=== PATIENT | female | born 1975 | race Caucasian/White ===

== ENCOUNTER 2025-03-08 05:15 | Observation (INO) ==
[2025-03-08 05:34] VITALS: BMI 30.9
[2025-03-08] MEDS: PEPCID TAB 40 MG PO ONE (05:52)
[2025-03-08] MEDS: BENADRYL INJ 50 MG VIAL IM ONE (05:54)
[2025-03-08] MEDS: ATARAX TAB 25 MG PO ONE (07:02)
--- NOTE | 2025-03-08 07:44 | DR.ALLERGY ---
HPI Time Seen Time Seen by Provider: 03/08/25 07:43 PCP Primary Care Physician: ROCÍO PIZANO HPI Comment HPI Comment: Patient with complaints of hives, itching, swelling. Patient states she was seen by the dentist yesterday and since then about 4 hours later she started getting itchy. Patient's hands are a little swollen. Denies fever. Patient states she also feels like something is stuck in her throat. Complaint/Symptoms Chief Complaint:: PT AMBULATORY IN ED WITH C/O WHELPS, ITCHING AND SWELLING. PT STATES SHE WENT TO THE DENTIST YESTERDAY AND STARTED ITCHING SHE WAS LEAVING THEN 4-6 HRS LATERS HAVING SWELLING, ITCHING AND WHELPS ON ARMS AND LEGS. STATES HANDS ARE HOT TO TOUCH AND HURT. Self Treatment fo Chief Complaint: BENADRYL 50MG EVERY 6 HRS. COVID-19 Coronavirus risk:travel/contact w/high risk person: No Has patient experienced Coronavirus symptoms: No Source History Provided: Patient Mode of Arrival Mode of Arrival: Ambulatory Timing Onset of Chief Complaint: 03/07/25 PMH PMH Past Medical History: Yes Past Medical History: Arthritis, Coronary Artery Disease, Dyslipidemia, GERD, Gout, Hypertension, Hypothyroidism and PUD Past Medical History Comment: RLS Past Surgical History: Yes Surgical History: Angioplasty/Stents and Hysterectomy Past Surgical History Comment: ESOPHAGUS DILATED Family History History of Family Medical Conditions: Yes Family Medical History: Diabetes Mellitus, Cancer, [place], Coronary Artery Disease, Heart Failure and Hypertension Social History Does patient currently use any type of tobacco product: No Have you used tobacco products in the last 12 months: No Type of Tobacco Use: None Does any household member use tobacco: No Alcohol Use: None Do you use any recreational Drugs:: No Lives With: Spouse Lives Where: Home Travel Risk Coronavirus risk:travel/contact w/high risk person: No Has patient experienced Coronavirus symptoms: No Infectious screening In the last 2 months have you had wt loss of >10#?: NO Have you had fever, night sweats or hemotysis?: No Have you traveled outside the country in the last 6 months?: No Isolation: Standard ROS Review of Systems Constitutional: No Symptoms Reported Eyes: No Symptoms Reported ENTM: No Symptoms Reported Respiratoy: No Symptoms Reported Cardiovascular: No Symptoms Reported Gastrointestinal/Abdominal: No Symptoms Reported Genitourinary: No Symptoms Reported Neurological: No Symptoms Reported Musculoskeletal: No Symptoms Reported Integumentary: See HPI Hematologic/Lymphatic: No Symptoms Reported Endocrine: No Symptoms Reported Psychiatric: No Symptoms Reported All Other Systems: Reviewed and Negative PE Vitals Vital Signs: Temp Pulse Resp BP Pulse Ox O2 Del Method 03/08/25 07:15 79 97 Room Air 03/08/25 07:00 77 97 Room Air 03/08/25 07:00 115/56 03/08/25 06:48 80 97 Room Air 03/08/25 05:16 98.3 F 90 20 113/66 97 Room Air Constitutional Limitations: No Limitations General Appearance: Alert and In No Apparent Distress Head Head Exam: Normal Inspection Eyes Eye exam: Normal Appearance ENT ENT Exam: Normal Exam and Mucous Membranes Moist Mouth Exam: Normal Inspection; negative Drooling, Lip Swelling or Tongue Swelling Throat Exam: Normal Inspection; negative Muffled Voice Neck Neck Exam: Normal Inspection and Trachea Midline Chest Chest Inspection: Normal Inspection Respiratory Respiratory Exam: Normal Lung Sounds Bilat Cardiovascular Cardiovascular Exam: Regular Rate and Normal Rhythm Abdominal Exam Abdominal Exam: Normal Inspection, Normal Bowel Sounds and Soft Extremities Extremities Exam: Normal Inspection Back Back Exam: Normal Inspection Neurologic Neurological Exam: Alert and Oriented X3 Psychiatric Psychiatric Exam: Normal Affect and Normal Mood Skin Skin Exam: Warm, Dry, Intact, Normal Color and Rash (Hives on upper and lower extremities. Hives and swelling on her chin.) COURSE Treatment Treatment: Patient had very mild improvement with steroids and Benadryl in ER. Consultation Consultation Comments: Discussed case with Dr. Gibson and she is agreeable to admission. Opioid Opioid Risk Tool Age (Robert box if 16-45): No History of Preadolescent Sexual Abuse: No Total: 0 Total Score Risk Category: Low Risk Copyright: Dk [id number] predicting aberrant behaviors Discharge Plan Diagnosis Discharge Problem: Rash due to allergy Discharge Plan Patient Disposition: ADMITTED INPATIENT Condition: Stable Prescriptions: No Action pramipexole 1.5 mg tablet 3 mg PO QHS celecoxib 200 mg capsule 200 mg PO QDAY atorvastatin [Lipitor] 40 mg Tablet 40 mg PO QHS potassium chloride 10 mEq Capsule, Extended Release 10 meq PO QDAY atenolol-chlorthalidone 50-25 mg tablet 1 tab PO QDAY clopidogrel [Plavix] 75 mg Tablet 75 mg PO QDAY allopurinol 100 mg tablet 200 mg PO QDAY levothyroxine 100 mcg tablet 100 mcg PO QDAY aspirin 81 mg Tablet 81 mg PO QDAY atenolol 50 mg tablet 50 mg PO QDAY methotrexate sodium (PF) 25 mg/mL solution 25 mg IM QWEEK Patient Comments: [NO ORIGINAL SIG] famotidine [Pepcid] 40 mg tablet 40 mg PO BID PRN Health Concerns: Post Hospitalization: new medications and changes needed to prevent readmission or further decline. Pt educated and given instructions on all concerns. Plan of Treatment: Continue with present treatment and follow up plan. Pt is to keep follow up appointment as instructed and take medications as ordered. Orders to Discharge Patient Discharge Orders: Transfer (Routine); Ordered 03/08/25 Ordered By: Lowell Wells Follow ups/Referrals Follow ups/Referrals: ROCÍO PIZANO [Primary Care Provider, Unknown] - 3 days Instructions Stand Alone Forms: Find Help Web Site, Post Hospital Follow Up Care Print Language: SOUTH AFRICAN
[2025-03-08 08:17] LABS: MEAN PLATELET VOLUME 8.7 fL (7.4-11.0); RED CELL DISTRIBUTION WIDTH 14.2 % (11.6-16.5)
[2025-03-08 08:24] LABS: COR NA(FOR HYPERGLY) 134 mmol/L (136-145); CREATININE 0.74 mg/dL (0.55-1.02); eGFR NON BLACK RACES > 60 (>60)
[2025-03-08] MEDS ORDERED: MORPHINE SULFATE INJ 2 MG INJ IVP PRN (08:44)
[2025-03-08] MEDS ORDERED: PEPCID TAB 40 MG PO PRN (08:44)
[2025-03-08] MEDS ORDERED: ULTRAM PO PRN (08:44)
[2025-03-08] MEDS ORDERED: ZOFRAN TAB 4 MG PO PRN (08:44)
[2025-03-08] MEDS ORDERED: TYLENOL 325 MG TAB PO PRN (08:44)
[2025-03-08] MEDS ORDERED: NORCO 5/325 MG TAB PO PRN (08:44)
[2025-03-08] MEDS ORDERED: CONSULT PHARMACY - POTASSIUM & MAGNESIUM XX SCH (08:44)
[2025-03-08] MEDS: PLAVIX PO SCH (09:36)
[2025-03-08] MEDS: ZYLOPRIM PO SCH (09:37)
[2025-03-08] MEDS: ASPIRIN EC 81 MG PO SCH (09:37)
[2025-03-08] MEDS: K-DUR TAB 20 MEQ PO SCH (09:37)
[2025-03-08] MEDS: CHLORTHALIDONE PO SCH (09:37)
[2025-03-08] MEDS: TENORMIN PO SCH (09:37)
--- NOTE | 2025-03-08 10:14 | DR.H&P ---
H&P History & Physical for Day of: H&P Date: 03/08/25 Chief Complaint Chief Complaint: itching, hives, swelling History of Present Illness History of Present Illness: Patient is a 49y/o female with a PMH of CAD s/p recent PCI, HTN, HLD, RA, hypothyroidism and GERD presented with itching, hives on her upper legs/groin area, b/l wrist and hand swelling and chin swelling. She had a dental appointment for implant yesterday and noticed her wrist was itching when she left the office. When she was home 4 hrs later, she started having hives in her hands, forearm and upper leg area. She also noticed both her hands were swollen. She took benedryl every 6 hrs. She did notify the dentist office. She was the first patient there and the chair had been wiped prior to her coming in. Patient was wearing long sleeve shirt and shorts. It seems like patient's hives are limited to the area that was in contact with the dental chair. Patient received IV solumedrol, famotidine and Vistaril in the ER. Her hives appear to be better. She still has b/l hand swelling and chin swelling. She denies dyspnea. She does report she feels something stuck in her throat. She denies any new lotion or detergent. She was started on new medicines 3 weeks ago after she had PCI but did not have any reaction. Denies any allergies. Labs/imaging reviewed: -WBC 8.2 Hgb 13.8 Plt 258 K 3.3 Plan: admit to med surg. Continue IV solumedrol. Vistaril prn and famotidine. Monitor sx and rash. Resume home medications. Replace electrolytes as per protocol. Ambulate as tolerated. Monitor Am labs/imaging. Past Medical History Past Medical History: Arthritis, Coronary Artery Disease, Dyslipidemia, GERD, Gout, Hypertension, Hypothyroidism and PUD Past Surgical History Surgical History: Angioplasty/Stents and Hysterectomy Family History Family Medical History: Coronary Artery Disease and Heart Failure Social History Does patient currently use any type of tobacco product: No Have you used tobacco products in the last 12 months: No Type of Tobacco Use: None Does any household member use tobacco: No Alcohol Use: None Drug Use: None Medications Home Medications: Home Medications Medication Instructions Recorded Confirmed Type pramipexole 1.5 mg tablet 3 mg PO QHS 01/27/25 5 History allopurinol 100 mg tablet 200 mg PO QDAY 03/08/2502/09 History aspirin 81 mg tablet 81 mg PO QDAY 03/08/2503/08 History atenolol 50 mg tablet 50 mg PO QDAY 03/08/2503/08 History atenolol 50 mg-chlorthalidone 25 1 tab PO QDAY 5 03/08/25 History mg tablet atorvastatin 40 mg tablet (Lipitor) 40 mg PO QHS 03/0803/08/25 History celecoxib 200 mg capsule 200 mg PO QDAY 03/08/2502/09 History clopidogrel 75 mg tablet (Plavix) 75 mg PO QDAY 03/08/25 History famotidine 40 mg tablet (Pepcid) 40 mg PO BID PRN 02/0903/08/25 History levothyroxine 100 mcg tablet 100 mcg PO QDAY 03/08/25 03/08/25 History methotrexate sodium (PF) 25 mg/mL 25 mg IM QWEEK 03/0803/08/25 History injection solution potassium chloride 10 mEq 10 meq PO QDAY 03/08/2502/09 History capsule,extended release Allergies Allergies Allergy/AdvReac Type Severity Reaction Status Date / Time No Known Allergies Allergy Verified 03/08/25 05:25 Labs 03/08/25 08:05 03/08/25 08:05 Labs: Laboratory WBC 8.2 X10^3/uL (3.6-10.0) 03/08/25 08:05 RBC 4.68 X10^6/uL (3.5-5.4) 03/08/25 08:05 Hgb 13.8 g/dL (12.0-16.0) 03/08/25 08:05 Hct 39.1 % (36.0-47.0) 03/08/25 08:05 MCV 83.4 fL (80.0-100.0) 03/08/25 08:05 MCH 29.4 pg (27.0-34.0) 03/08/25 08:05 MCHC 35.2 g/dL (33.0-35.0) H 03/08/25 08:05 RDW 14.2 % (11.6-16.5) 03/08/25 08:05 Plt Count 258 X10^3/uL (150.0-450.0) 03/08/25 08:05 MPV 8.7 fL (7.4-11.0) 03/08/25 08:05 Neut % (Auto) 88.4 % (42.0-75.0) H 03/08/25 08:05 Lymph % (Auto) 6.3 % (21.0-51.0) L 03/08/25 08:05 [place] % (Auto) 2.3 % (0.0-13.0) 03/08/25 08:05 Eos % (Auto) 1.2 % (0.9-2.9) 03/08/25 08:05 Baso % (Auto) 1.8 % (0.2-1.0) H 03/08/25 08:05 Neut # (Auto) 7.2 x10^3/uL (2.2-4.8) H 03/08/25 08:05 Lymph # (Auto) 0.5 X10^3/uL (1.3-2.9) L 03/08/25 08:05 [place] # (Auto) 0.2 x10^3/uL (0.3-0.8) L 03/08/25 08:05 Eos # (Auto) 0.1 x10^3/uL (0.0-0.2) 03/08/25 08:05 Baso # (Auto) 0.2 X10^3/uL (0.0-0.1) H 03/08/25 08:05 Absolute Nucleated RBC 0.7 /100WBC 03/08/25 08:05 Sodium 134 mmol/L (136-145) L 03/08/25 08:05 Corrected Sodium 134 mmol/L (136-145) L 03/08/25 08:05 Potassium 3.3 mmol/L (3.5-5.1) L 03/08/25 08:05 Chloride 98 mmol/L (98-107) 03/08/25 08:05 Carbon Dioxide 29.7 mmol/L (21-32) 03/08/25 08:05 BUN 17 mg/dL (7-18) 03/08/25 08:05 Creatinine 0.74 mg/dL (0.55-1.02) 03/08/25 08:05 Est GFR (MDRD) Af Amer > 60 (>60) 03/08/25 08:05 Est GFR (MDRD) Non-Af > 60 (>60) 03/08/25 08:05 Glucose 120 mg/dL (65-99) H 03/08/25 08:05 Calcium 9.4 mg/dL (8.5-10.1) 03/08/25 08:05 Corrected Calcium TNP 03/08/25 08:05 Total Bilirubin 1.80 mg/dL (0.2-1.0) H 03/08/25 08:05 AST 15 Units/L (15-37) 03/08/25 08:05 ALT 24 Units/L (12-78) 03/08/25 08:05 Alkaline Phosphatase 101 Units/L (46-116) 03/08/25 08:05 Total Protein 8.0 g/dL (6.4-8.2) 03/08/25 08:05 Albumin 4.3 g/dL (3.4-5.0) 03/08/25 08:05 Globulin 3.7 g/dL (2.5-4.5) 03/08/25 08:05 Albumin/Globulin Ratio 1.2 Ratio (1.1-2.1) 03/08/25 08:05 Review of Systems Constitutional: No Symptoms Reported Eyes: No Symptoms Reported ENT: No Symptoms Reported Respiratory: No Symptoms Reported Cardiovascular: No Symptoms Reported Gastrointestinal: No Symptoms Reported Genitourinary: No Symptoms Reported Musculoskeletal: Arm Pain and Hand Pain Skin: Other (hives) Neurological: No Symptoms Reported Physical Exam Vital Signs: Vital Signs Temperature 98.4 F Temperature 98.3 F Pulse Rate [Left Radial] 81 Pulse Rate 79 Pulse Rate 78 Pulse Rate 80 Pulse Rate 84 Pulse Rate 80 Pulse Rate 79 Pulse Rate 77 Pulse Rate 80 Pulse Rate 90 Respiratory Rate 20 Respiratory Rate 20 Respiratory Rate 20 Blood Pressure [Left Arm] 111/65 Blood Pressure 106/60 Blood Pressure 106/60 Blood Pressure 106/60 Blood Pressure 106/60 Blood Pressure 109/66 Blood Pressure 115/56 Blood Pressure 113/66 O2 Sat by Pulse Oximetry 98 O2 Sat by Pulse Oximetry 98 O2 Sat by Pulse Oximetry 98 O2 Sat by Pulse Oximetry 99 O2 Sat by Pulse Oximetry 98 O2 Sat by Pulse Oximetry 99 O2 Sat by Pulse Oximetry 97 O2 Sat by Pulse Oximetry 97 O2 Sat by Pulse Oximetry 97 O2 Sat by Pulse Oximetry 97 O2 Sat by Pulse Oximetry 97 Oriented: Normal Throat: Normal Respiratory: Clear Throughout Cardiovascular: Normal Auscultation: Bowel Sounds: Normal Palpation: Normal Tenderness: Normal Skin: Rash and Other (hives improved ) Musculoskeletal: Wrist, Swelling and Tender Psychiatric: Normal Mood Description: Calm Affect: Normal Speech Pattern: Clear and Appropriate Assessment/Plan (1) Allergic reaction: Qualifiers: Encounter type: initial encounter Qualified Code(s): T78.40XA - Allergy, unspecified, initial encounter Status: Acute (2) Rash due to allergy: Status: Acute (3) Hypokalemia: Status: Acute (4) Hives: Status: Acute (5) CAD (coronary artery disease): Qualifiers: Coronary Disease-Associated Artery/Lesion type: unspecified vessel or lesion type [place] vs. transplanted heart: [place] heart [facility] Qualified Code(s): I25.10 - Atherosclerotic heart disease of [place] coronary artery without angina pectoris Status: Chronic (6) HTN (hypertension): Qualifiers: Hypertension type: primary hypertension Qualified Code(s): I10 - Essential (primary) hypertension Status: Chronic (7) HLD (hyperlipidemia): Qualifiers: Hyperlipidemia type: mixed hyperlipidemia Qualified Code(s): E78.2 - Mixed hyperlipidemia Status: Chronic Review H&P Reviewed: Yes Patient was examined?: Yes
[2025-03-08] MEDS: VISTARIL PO PRN (12:07)
[2025-03-08] MEDS: LIPITOR TAB 40 MG PO SCH (21:34)
[2025-03-08] MEDS: MIRAPEX TAB 1 MG PO SCH (21:34)
[2025-03-09 04:58] LABS: MEAN PLATELET VOLUME 8.9 fL (7.4-11.0); RED CELL DISTRIBUTION WIDTH 13.7 % (11.6-16.5)
[2025-03-09 05:05] LABS: COR NA(FOR HYPERGLY) 138 mmol/L (136-145); CREATININE 0.68 mg/dL (0.55-1.02); eGFR NON BLACK RACES > 60 (>60)
[2025-03-09 05:17] LABS: PLATELET MORPHOLOGY COMMENT NORMAL (NORMAL)
[2025-03-09] MEDS ORDERED: CONSULT PHARMACY - POTASSIUM & MAGNESIUM XX SCH (06:00)
[2025-03-09 07:37] VITALS: RESP 19; O2SAT 97
[2025-03-09] MEDS: MAG-OX TAB PO SCH (09:36)
[2025-03-09] MEDS: METHOTREXATE SODIUM IM SCH (09:37)
[2025-03-09] MEDS: NS + KCL 40 MEQ/L 1,000 ML IV SCH (09:50)
[2025-03-09] MEDS: K-DUR TAB 20 MEQ PO ONE (09:56)
[2025-03-09] MEDS ORDERED: K-DUR TAB 20 MEQ PO SCH (11:00)
[2025-03-09 13:20] VITALS: BP 137/65; PULSE 78; TEMP 97.9
--- NOTE | 2025-03-10 09:03 | W.DIS.FURT ---
Summary of Discharge Discharge Summary of Date Date of Exam: 03/09/25 Admission Date Date of Admission: 03/08/25 Admission Diagnosis Patient Problems (Updated 03/08/25 @ 10:13 by Lety Peter MD) Rash due to allergy (Acute) [id number], R21 Hospital Course: Patient is a 49y/o female with a PMH of CAD s/p recent PCI, HTN, HLD, RA, hypothyroidism and GERD presented with itching, hives on her upper legs/groin area, b/l wrist and hand swelling and chin swelling. She had a dental appointment for implant yesterday and noticed her wrist was itching when she left the office. When she was home 4 hrs later, she started having hives in her hands, forearm and upper leg area. She also noticed both her hands were swollen. She took benedryl every 6 hrs. She did notify the dentist office. She was the first patient there and the chair had been wiped prior to her coming in. Patient was wearing long sleeve shirt and shorts. It seems like patient's hives are limited to the area that was in contact with the dental chair. Patient received IV solumedrol, famotidine and Vistaril in the ER. Her hives appear to be better. She still has b/l hand swelling and chin swelling. She denies dyspnea. She does report she feels something stuck in her throat. She denies any new lotion or detergent. She was started on new medicines 3 weeks ago after she had PCI but did not have any reaction. Denies any allergies. She was admitted for further management. She remained on IV steroids, famotidine and Vistaril as needed. Her bilateral hand swelling and hives had improved significantly by the evening. Her labs were monitored daily and electrolytes replaced as needed. She was doing a lot better the following day. She was stable to be discharged home. She will follow-up with PCP as scheduled. Vital Signs: Vital Signs (72 hours) 03/08/25 05:16 03/08/25 06:48 03/08/25 07:00 Temperature 98.3 F Pulse Rate 90 80 Pulse Rate [Left Radial] Respiratory Rate 20 Blood Pressure 113/66 115/56 Blood Pressure [Left Arm] O2 Sat by Pulse Oximetry 97 97 Oxygen Delivery Method Room Air Room Air 03/08/25 07:00 03/08/25 07:15 03/08/25 07:30 Temperature Pulse Rate 77 79 Pulse Rate [Left Radial] Respiratory Rate Blood Pressure 109/66 Blood Pressure [Left Arm] O2 Sat by Pulse Oximetry 97 97 Oxygen Delivery Method Room Air Room Air 03/08/25 07:30 03/08/25 07:45 03/08/25 07:59 Temperature Pulse Rate 80 84 80 Pulse Rate [Left Radial] Respiratory Rate Blood Pressure Blood Pressure [Left Arm] O2 Sat by Pulse Oximetry 97 99 98 Oxygen Delivery Method 03/08/25 08:00 03/08/25 08:00 03/08/25 08:00 Temperature Pulse Rate Pulse Rate [Left Radial] Respiratory Rate Blood Pressure 106/60 106/60 106/60 Blood Pressure [Left Arm] O2 Sat by Pulse Oximetry Oxygen Delivery Method 03/08/25 08:00 03/08/25 08:02 03/08/25 08:15 Temperature Pulse Rate 78 79 Pulse Rate [Left Radial] Respiratory Rate Blood Pressure 106/60 Blood Pressure [Left Arm] O2 Sat by Pulse Oximetry 99 98 Oxygen Delivery Method 03/08/25 08:20 03/08/25 08:54 03/08/25 11:04 Temperature 98.4 F Pulse Rate Pulse Rate [Left Radial] 81 Respiratory Rate 20 20 Blood Pressure Blood Pressure [Left Arm] 111/65 O2 Sat by Pulse Oximetry 98 98 Oxygen Delivery Method Room Air Room Air Room Air 03/08/25 12:00 03/08/25 15:38 03/08/25 19:00 Temperature 98.1 F 97.9 F Pulse Rate Pulse Rate [Left Radial] 73 77 Respiratory Rate 18 19 Blood Pressure Blood Pressure [Left Arm] 109/56 116/63 O2 Sat by Pulse Oximetry 95 97 Oxygen Delivery Method Room Air Room Air Room Air 03/08/25 20:00 03/09/25 00:00 03/09/25 04:00 Temperature 97.6 F 97.7 F 97.7 F Pulse Rate Pulse Rate [Left Radial] 80 72 80 Respiratory Rate 18 16 18 Blood Pressure Blood Pressure [Left Arm] 132/67 124/73 134/77 O2 Sat by Pulse Oximetry 99 98 99 Oxygen Delivery Method Room Air Room Air Room Air 03/09/25 07:34 Temperature 98.7 F Pulse Rate Pulse Rate [Left Radial] 71 Respiratory Rate 19 Blood Pressure Blood Pressure [Left Arm] 131/64 O2 Sat by Pulse Oximetry 97 Oxygen Delivery Method Room Air Labs: Laboratory Last Values WBC 10.3 X10^3/uL (3.6-10.0) H 03/09/25 04:35 RBC 4.24 X10^6/uL (3.5-5.4) 03/09/25 04:35 Hgb 12.8 g/dL (12.0-16.0) 03/09/25 04:35 Hct 35.4 % (36.0-47.0) L 03/09/25 04:35 MCV 83.6 fL (80.0-100.0) 03/09/25 04:35 MCH 30.2 pg (27.0-34.0) 03/09/25 04:35 MCHC 36.1 g/dL (33.0-35.0) H 03/09/25 04:35 RDW 13.7 % (11.6-16.5) 03/09/25 04:35 Plt Count 267 X10^3/uL (150.0-450.0) 03/09/25 04:35 Plt Count Comment Adequate (ADEQUATE) 03/09/25 04:35 MPV 8.9 fL (7.4-11.0) 03/09/25 04:35 Neut % (Auto) 92.7 % (42.0-75.0) H 03/09/25 04:35 Lymph % (Auto) 5.9 % (21.0-51.0) L 03/09/25 04:35 [place] % (Auto) 1.0 % (0.0-13.0) 03/09/25 04:35 Eos % (Auto) 0.1 % (0.9-2.9) L 03/09/25 04:35 Baso % (Auto) 0.3 % (0.2-1.0) 03/09/25 04:35 Neut # (Auto) 9.5 x10^3/uL (2.2-4.8) H 03/09/25 04:35 Lymph # (Auto) 0.6 X10^3/uL (1.3-2.9) L 03/09/25 04:35 [place] # (Auto) 0.1 x10^3/uL (0.3-0.8) L 03/09/25 04:35 Eos # (Auto) 0.0 x10^3/uL (0.0-0.2) 03/09/25 04:35 Baso # (Auto) 0.0 X10^3/uL (0.0-0.1) 03/09/25 04:35 Absolute Nucleated RBC 0.0 /100WBC 03/09/25 04:35 Total Counted 100 03/09/25 04:35 Neutrophils % (Manual) 92 % (39-76) H 03/09/25 04:35 Lymphocytes % (Manual) 7 % (13-43) L 03/09/25 04:35 Monocytes % (Manual) 1 % (4-9) L 03/09/25 04:35 Plt Morphology Comment Normal (NORMAL) 03/09/25 04:35 RBC Morphology Normal (NORMAL) 03/09/25 04:35 Sodium 136 mmol/L (136-145) 03/09/25 04:35 Corrected Sodium 138 mmol/L (136-145) 03/09/25 04:35 Potassium 2.7 mmol/L (3.5-5.1) L* 03/09/25 04:35 Chloride 100 mmol/L (98-107) 03/09/25 04:35 Carbon Dioxide 32.9 mmol/L (21-32) H 03/09/25 04:35 BUN 19 mg/dL (7-18) H 03/09/25 04:35 Creatinine 0.68 mg/dL (0.55-1.02) 03/09/25 04:35 Est GFR (MDRD) Af Amer > 60 (>60) 03/09/25 04:35 Est GFR (MDRD) Non-Af > 60 (>60) 03/09/25 04:35 Glucose 179 mg/dL (65-99) H 03/09/25 04:35 Calcium 9.3 mg/dL (8.5-10.1) 03/09/25 04:35 Corrected Calcium TNP 03/09/25 04:35 Magnesium 1.7 mg/dL (2.0-2.9) L 03/09/25 04:35 Total Bilirubin 0.80 mg/dL (0.2-1.0) 03/09/25 04:35 AST 12 Units/L (15-37) L 03/09/25 04:35 ALT 20 Units/L (12-78) 03/09/25 04:35 Alkaline Phosphatase 94 Units/L (46-116) 03/09/25 04:35 Total Protein 7.6 g/dL (6.4-8.2) 03/09/25 04:35 Albumin 3.7 g/dL (3.4-5.0) 03/09/25 04:35 Globulin 3.9 g/dL (2.5-4.5) 03/09/25 04:35 Albumin/Globulin Ratio 0.9 Ratio (1.1-2.1) L 03/09/25 04:35 Reason For Visit: ALLERGY, HIVES, PRURITUS Discharge Diagnosis All Active Problems (Updated 03/08/25 @ 10:13 by Lety Peter MD) Allergic reaction (Acute) HLD (hyperlipidemia) (Chronic) HTN (hypertension) (Chronic) CAD (coronary artery disease) (Chronic) Hives (Acute) Rash due to allergy (Acute) Hypokalemia (Acute) Chest pain (Acute) Plan of Treatment: Continue with present treatment and follow up plan. Pt is to keep follow up appointment as instructed and take medications as ordered. Discharge Medications Discharge Medications: No Known Allergies Allergy (Verified 03/08/25 05:25) CONTINUE taking the following medications allopurinol 100 mg tablet 200 mg PO QDAY 03/08/25 [History] aspirin 81 mg tablet 81 mg PO QDAY 03/08/25 [History] atenolol 50 mg tablet 50 mg PO QDAY 03/08/25 [History] atenolol 50 mg-chlorthalidone 25 mg tablet 1 tab PO QDAY 03/08/25 [History] atorvastatin 40 mg tablet (Lipitor) 40 mg PO QHS 03/08/25 [History] celecoxib 200 mg capsule 200 mg PO QDAY 03/08/25 [History] clopidogrel 75 mg tablet (Plavix) 75 mg PO QDAY 03/08/25 [History] famotidine 40 mg tablet (Pepcid) 40 mg PO BID PRN 03/08/25 [History] levothyroxine 100 mcg tablet 100 mcg PO QDAY 03/08/25 [History] methotrexate sodium (PF) 25 mg/mL injection solution 25 mg IM QWEEK 03/08/25 [History] potassium chloride 10 mEq capsule,extended release 10 meq PO QDAY 03/08/25 [History] New Prescriptions methylprednisolone 4 mg tablets in a dose pack See Rx Instructions PO .COMPLEX #21 ea 03/09/25 [Rx] Discharge Disposition Discharge Disposition: To home Discharge Condition: Stable Discharge Plan Discharge Plan Hospital Course: Patient is a 49y/o female with a PMH of CAD s/p recent PCI, HTN, HLD, RA, hypothyroidism and GERD presented with itching, hives on her upper legs/groin area, b/l wrist and hand swelling and chin swelling. She had a dental appointment for implant yesterday and noticed her wrist was itching when she left the office. When she was home 4 hrs later, she started having hives in her hands, forearm and upper leg area. She also noticed both her hands were swollen. She took benedryl every 6 hrs. She did notify the dentist office. She was the first patient there and the chair had been wiped prior to her coming in. Patient was wearing long sleeve shirt and shorts. It seems like patient's hives are limited to the area that was in contact with the dental chair. Patient received IV solumedrol, famotidine and Vistaril in the ER. Her hives appear to be better. She still has b/l hand swelling and chin swelling. She denies dyspnea. She does report she feels something stuck in her throat. She denies any new lotion or detergent. She was started on new medicines 3 weeks ago after she had PCI but did not have any reaction. Denies any allergies. She was admitted for further management. She remained on IV steroids, famotidine and Vistaril as needed. Her bilateral hand swelling and hives had improved significantly by the evening. Her labs were monitored daily and electrolytes replaced as needed. She was do ing a lot better the following day. She was stable to be discharged home. She will follow-up with PCP as scheduled. Patient Disposition: 01 HOME, SELF-CARE Condition: Stable Health Concerns: Post Hospitalization: new medications and changes needed to prevent readmission or further decline. Pt educated and given instructions on all concerns. Care Plan Goals: Problem: Pain/Alteration in Comfort Goal: Improve/ Resolve Pain; Achieve Pain Tolerance Instructions: Take pain medications as prescribed. Contact your primary care provider if your pain is unrelieved or worsens. Follow up with primary care provider as directed. Plan of Treatment: Continue with present treatment and follow up plan. Pt is to keep follow up appointment as instructed and take medications as ordered. Prescription drug monitoring program results: PDMP reviewed and no concerns identified Prescriptions: New methylprednisolone 4 mg tablets,dose pack See Rx Instructions .ROUTE .COMPLEX Qty: 21 0RF Rx Instructions: for 6 days Continued pramipexole 1.5 mg tablet 3 mg PO QHS celecoxib 200 mg capsule 200 mg PO QDAY atorvastatin [Lipitor] 40 mg Tablet 40 mg PO QHS potassium chloride 10 mEq Capsule, Extended Release 10 meq PO QDAY atenolol-chlorthalidone 50-25 mg tablet 1 tab PO QDAY clopidogrel [Plavix] 75 mg Tablet 75 mg PO QDAY allopurinol 100 mg tablet 200 mg PO QDAY levothyroxine 100 mcg tablet 100 mcg PO QDAY aspirin 81 mg Tablet 81 mg PO QDAY atenolol 50 mg tablet 50 mg PO QDAY methotrexate sodium (PF) 25 mg/mL solution 25 mg IM QWEEK Patient Comments: [NO ORIGINAL SIG] famotidine [Pepcid] 40 mg tablet 40 mg PO BID PRN Orders to Discharge Patient Discharge Orders: Discharge (Routine); Ordered 03/09/25 Ordered By: Lety Peter Follow ups/Referrals Follow ups/Referrals: ROCÍO PIZANO [Primary Care Provider, Unknown] - 03/17/25 10:30 am Instructions Instructions: Hives, [id number], Rash, Adult, [id number] Stand Alone Forms: Excuse From Work or School, Find Help Web Site, Post Hospital Follow Up Care Print Language: UKRAINIAN
== END 2025-03-09 12:15 | disposition home or self-care (01) ==
LOC: ER 05:15 → MED/SURG 05:15
PROVIDERS: ADMIT Internal Medicine; ATTEND Internal Medicine
DX: T78.40XA Allergy, unspecified, initial encounter; R09.A2 Foreign body sensation, throat; E78.2 Mixed hyperlipidemia; E03.8 Other specified hypothyroidism; I25.10 Atherosclerotic heart disease of native coronary artery without angina pectoris; Z79.01 Long term (current) use of anticoagulants; E80.6 Other disorders of bilirubin metabolism; E87.1 Hypo-osmolality and hyponatremia; I10 Essential (primary) hypertension; L50.0 Allergic urticaria; R21 Rash and other nonspecific skin eruption; Z95.5 Presence of coronary angioplasty implant and graft; R60.0 Localized edema; E87.6 Hypokalemia; K21.9 Gastro-esophageal reflux disease without esophagitis; E83.42 Hypomagnesemia; R73.09 Other abnormal glucose; X58.XXXA Exposure to other specified factors, initial encounter